=== PATIENT | female | born 1940 | race Caucasian/White ===

== ENCOUNTER → 2016-12-03 | Outpatient (CLI) | payer MEDICARE ==
--- NOTE | 2016-12-03 11:34 | MM ---
Reason for exam: additional evaluation requested from prior study. Last mammogram was performed 1 year ago. History: Patient is postmenopausal and has history of breast cancer at age 57. Family history of breast cancer in maternal grandmother at age 50 and breast cancer in paternal grandmother at age 65. Benign excisional biopsy of the left breast, February 20, 2000. Excisional biopsy of the left breast, July 09, 1997. Benign excisional biopsy of the left breast, July 09, 1997. Benign cyst aspiration of the left breast, June 12, 1997. Benign core biopsy of the left breast, June 12, 1997. Benign core biopsy of the right breast, June 12, 1997. Malignant lumpectomy of the left breast, 1997. Excisional biopsy of the left breast. Took tamoxifen for 5 years beginning at age 57. Physical Findings: Nurse Summary: 0.5cm nodule in the left breast at 9 o'clock (nurse dw). MG 3D Diag Mammo W/Cad DYLAN Bilateral CC and MLO view(s) were taken. Prior study comparison: December 03, 2015, bilateral MG 3d diag mammo w/cad DYLAN. November 30, 2014, bilateral MG diagnostic mammo w CAD DYLAN. November 24, 2013, bilateral MG diagnostic mammo w CAD DYLAN. November 23, 2011, CAD bilateral diagnostic mammogram. There are scattered fibroglandular densities. Finding: There is a 9 mm equal density (isodense), circumscribed oval mass in the subareolar position of the left breast. Previous mammotome biopsy in the left breast. There is a chronic nodularity bilaterally. New finding since December 03, 2015, November 30, 2014, November 24, 2013, and November 23, 2011. These results were verbally communicated with the patient and result sheet given to the patient on 12/03/16. ASSESSMENT: Incomplete: need additional imaging evaluation, BI-RAD 0 RECOMMENDATION: Ultrasound of the left breast.
--- NOTE | 2016-12-03 11:37 | USB ---
Reason for exam: additional evaluation requested from abnormal screening. History: Patient is postmenopausal and has history of breast cancer at age 57. Family history of breast cancer in maternal grandmother at age 50 and breast cancer in paternal grandmother at age 65. Benign excisional biopsy of the left breast, February 20, 2000. Excisional biopsy of the left breast, July 09, 1997. Benign excisional biopsy of the left breast, July 09, 1997. Benign cyst aspiration of the left breast, June 12, 1997. Benign core biopsy of the left breast, June 12, 1997. Benign core biopsy of the right breast, June 12, 1997. Malignant lumpectomy of the left breast, 1997. Excisional biopsy of the left breast. Took tamoxifen for 5 years beginning at age 57. US Breast Workup Limited LT Left breast ultrasound demonstrates a 0.7 x 0.8 x 0.9cm smooth, taller than wide, mildly hyperechoic lesion at 9 o'clock. These results were verbally communicated with the patient and result sheet given to the patient on 12/03/16. ASSESSMENT: Suspicious, BI-RAD 4 RECOMMENDATION: Surgical consultation and ultrasound core biopsy of the left breast. Called Dr. Cooper with mammographic findings and has scheduled an appointment for the patient for 12/04/16 at 1:[address] Lo. PRELIMINARY REPORT CALLED AND FAXED TO DR. LO ON 11/2916 /.
== END | disposition home or self-care (01) ==
LOC: RADMAMWWP 08:12
PROVIDERS: ATTEND Internal Medicine Hematology & Oncology
DX: Z08 Encounter for follow-up examination after completed treatment for malignant neoplasm (principal); Z85.3 Personal history of malignant neoplasm of breast
CPT/HCPCS: 76642; G0204; G0279

== ENCOUNTER → 2016-12-11 | Day surgery (SDC) | payer MEDICARE ==
[2016-12-11 11:03] VITALS: RESP 16; TEMP 98.6; BMI 24.7
--- NOTE | 2016-12-11 12:21 | MM ---
EXAMINATION TYPE: US biopsy breast VAD LT DATE OF EXAM: 12/11/2016 CLINICAL HISTORY: R92.8 abnormal mammo. TECHNIQUE: Ultrasound guided core biopsy of left breast. COMPARISON: Previous study dated 12/03/2016. FINDINGS: The procedure of ultrasound guided core biopsy was explained to the patient. Benefits, alt ernatives, and risks were discussed. An informed consent was then obtained. The patient was placed in supine positioning for imaging and for the procedure. The overlying skin w as prepped and draped in usual sterile fashion. Lidocaine buffered with bicarbonate was used as anes thetic into the skin and subcutaneous tissue up to area of concern in the left breast. A julia was ma de with surgical scalpel. Under ultrasound guidance, a 12-gauge vacuum assisted biopsy gun device was used to obtain 5 [address]. Following this, a biopsy clip was left in lesion. The patient tolerated the procedure well without any immediate complication. The patient was kept in the radiology department for short stay after the procedure and then discharged home in stable condi tion. A postprocedure mammogram was performed to confirm clip placement. Pathology is pending. IMPRESSION: SUCCESSFUL, UNCOMPLICATED ULTRASOUND GUIDED CORE BIOPSY OF AREA OF CONCERN IN THE LEFT BREAST, FULL P ATHOLOGY RESULTS TO FOLLOW.
[2016-12-11 12:39] VITALS: BP 118/74; PULSE 72
--- NOTE | 2016-12-11 14:13 | USB ---
EXAMINATION TYPE: US biopsy breast VAD LT DATE OF EXAM: 12/11/2016 CLINICAL HISTORY: R92.8 abnormal mammo. TECHNIQUE: Ultrasound guided core biopsy of left breast. COMPARISON: Previous study dated 12/03/2016. FINDINGS: The procedure of ultrasound guided core biopsy was explained to the patient. Benefits, alternatives, and risks were discussed. An informed consent was then obtained. The patient was placed in supine positioning for imaging and for the procedure. The overlying skin was prepped and draped in usual sterile fashion. Lidocaine buffered with bicarbonate was used as anesthetic into the skin and subcutaneous tissue up to area of concern in the left breast. A julia was made with surgical scalpel. Under ultrasound guidance, a 12-gauge vacuum assisted biopsy gun device was used to obtain 5 core samples. Following this, a biopsy clip was left in lesion. The patient tolerated the procedure well without any immediate complication. The patient was kept in the radiology department for short stay after the procedure and then discharged home in stable condition. A postprocedure mammogram was performed to confirm clip placement. Pathology is pending. IMPRESSION: SUCCESSFUL, UNCOMPLICATED ULTRASOUND GUIDED CORE BIOPSY OF AREA OF CONCERN IN THE LEFT BREAST, FULL PATHOLOGY RESULTS TO FOLLOW. 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 SEE NOTE. Recommendation Surgical consult of the left breast. HOWARD
== END ==
LOC: RADUSWWP 10:43
PROVIDERS: ATTEND Surgery
DX: C50.912 Malignant neoplasm of unspecified site of left female breast (principal); D24.2 Benign neoplasm of left breast; Z88.0 Allergy status to penicillin
CPT/HCPCS: 88305; 88342; 88341; 19083; G0206; A4648; J2001